=== PATIENT | male | born 1990 | race Caucasian/White ===

== ENCOUNTER 2018-04-08 00:04 | Emergency (ER) | payer SELFPAY ==
[2018-04-08] MEDS ORDERED: traMADol HCl 50 MG TAB ONE (00:59)
--- NOTE | 2018-04-08 07:41 | RAD ---
FOUR VIEWS RIGHT KNEE: HISTORY: Right knee pain. While playing basketball injured right knee acutely. FINDINGS: AP, lateral, and both oblique views of the right knee are obtained. Four views right knee demonstrate some mild joint space narrowing in the medial compartment of the ri ght knee compatible with osteoarthritic changes. No evidence of acute right knee fractures, subluxat ions, or bony lesions seen. IMPRESSION: No evidence of acute right knee pathology seen. POS: [facility]
== END 2018-04-08 01:26 | disposition home or self-care (01) ==
LOC: MADERS 00:04
DX: S83.91XA Sprain of unspecified site of right knee, initial encounter (principal); Y93.64 Activity, baseball; F43.10 Post-traumatic stress disorder, unspecified; F41.9 Anxiety disorder, unspecified; F32.9 Major depressive disorder, single episode, unspecified; F17.210 Nicotine dependence, cigarettes, uncomplicated; X50.1XXA Overexertion from prolonged static or awkward postures, initial encounter